=== PATIENT | male | born 2000 | race Two or more races ===

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

== ENCOUNTER 2019-11-06 15:49 | Emergency (ER) | payer OTHER, SELFPAY ==
[2019-11-06 15:50] VITALS: BP 151/87; PULSE 51; RESP 16; TEMP 36.2; O2SAT 98; BMI 25.7
--- NOTE | 2019-11-06 15:55 | XR_ITS ---
PROCEDURE: XR CHEST 2V CLINICAL HISTORY: chest pain. COMPARISON: CXR2 CHEST-AP VIEW ONLY from 01/05/2015 CXR CHEST(2 VIEWS-NOT PORTABLE) from 08/09/2015 CXR CHEST(2 VIEWS-NOT PORTABLE) from 04/05/2017 FINDINGS: The cardiomediastinal silhouette and pulmonary vascularity are within normal limits. The lungs are clear without infiltrates, suspicious nodules, or pleural effusions. No acute bony abnormalities. IMPRESSION: No acute findings. Dictated by: Mick Sepulveda MD 11/06/2019 16:22 Electronically signed by Mick Sepulveda MD in [place] 11/06/2019 16:22
--- NOTE | 2019-11-06 16:10 | HMH.EDCP ---
ED Disposition Clinical Impression: Costalchondritis Disposition: Home, Self-Care Condition on Discharge: Good Instructions: DI for Atypical Chest Pain Prescriptions: Nabumetone 750 mg PO BID 10 Days #20 tab Transmission Status: Sent to [id number] Referrals: Negrito Mooney MD [Primary Care Provider] - - Critical Care Critical Care Time: No Attestation: On 11/06/19, the high probability of a clinically significant, sudden or life threatening deterioration of the following system(s) required my full and direct attention, intervention and personal management. The time I documented below is in addition to time spent performing reported procedures but includes the following listed in this critical care notation. Medical Decision Making - Medical Records Medical records reviewed: Yes: I reviewed the patient's medical records. - Mitchell Inquiry Pt receiving controlled substance: No Vital Signs: 11/06/19 15:50 Temperature 97.2 F L Temperature Source Oral Pulse Rate [Left Radial] 51 L Respiratory Rate 16 Blood Pressure [Right Arm] 151/87 H Blood Pressure Mean [Right Arm] 108 Blood Pressure Position [Right Arm] Sitting 02 Sat by Pulse Oximetry 98 Oxygen Delivery Method Room Air - Lab Data Lab results reviewed: Yes: I reviewed the patient's lab results. Orders (Tests/Meds): ORDERS Category Date Time Status Chest XR 2 view (NOT portable) [XR chest 2V] Stat Exams 11/06/19 15:55 Taken Chest Pain HPI - General Chief Complaint: Chest Pain Stated Complaint: chest pain Time Seen by Provider: 11/06/19 16:10 Mode of Arrival: Ambulatory Source of Information: Patient Limitations: No Limitations Description of Symptoms (Recalled from ER Triage Doc. by RN): to ed per pvt car with c/o sharp chest pain with movement states pain started yesterday denies injury. pt denies any sob, nausea, vomiting, diaphoresis - History of Present Illness HPI narrative: 18-year-old male presents to the ER with subsequent substernal chest pain. He states the pain started last night. He describes the pain as a sharp sensation that is tender to touch. He also states that with deep inhalations it also reproduces the same kind of pain. He also states with doing pushing movements it reproduces the pain as well. He states at rest he can feel it slightly but usually with the exacerbating factors previous described that is what causes the pain to go to about 5-6 out of 10. Rest causes alleviation. Otherwise patient has no other formal cardiac history or no other symptoms. HPIPatient denies any recent cough or shortness of breath, patient denies any sore throat or headache, patient denies any loss of taste or smell, patient denies any malaise or fatigue, patient denies any abdominal pain nausea vomiting or diarrhea. - Related Data Previous Rx's Medication Instructions Recorded Nabumetone 750 mg PO BID 10 Days #20 tab 11/06/19 Allergies Allergy/AdvReac Type Severity Reaction Status Date / Time No Known Allergies Allergy Verified 08/02/19 13:10 [facility] History - Hepatitis A Screen Drug use history?: No High risk sexual behaviors?: No History of sexually transmitted infection?: No Currently employed?: No Childcare worker?: No Do you have indoor plumbing?: Yes Do you have electricity?: Yes Attestation statement:: This patient has been screened for Hepatitis A risk factors. I have reviewed the patient's past medical history: Yes Medical History: Reports:: Palpitations Denies:: Cancer, Diabetes Mellitus Type 1, Diabetes Mellitus Type 2, Hypertension, MRSA Other Medical History: Reports: Other Comment: Premature baby born at 26 weeks Laterality Cases: Bilateral: Myringotomy (Ear Tubes), Tonsillectomy Other Surgeries: Yes: No Previous Surgery Amputation: No Fractures: No - Social History Smoking Status: Current every day smoker Tobacco Type: cigarettes # Packs/Day (cigarettes): 0 Alcohol Intak
--- NOTE | 2019-11-06 16:15 | ECG_ITS ---
APPROVED REPORT Exam: Resting ECG HR:56 bpm ECG Measurements Heart Rate 56 AXES MI 138 P 11 QRSd 86 QRS 65 QT 414 T 50 QTc 399 <Conclusion> Sinus bradycardia Early repolarization Incomplete RBBB Otherwise normal ECG Electronically signed by : Humberto Reese, 11/07/2019 19:00:49
[2019-11-06 17:18] VITALS: BP 112/74; PULSE 78; RESP 16; TEMP 36.6
== END 2019-11-06 17:20 | disposition home or self-care (01) ==
PROVIDERS: Emergency Provider Family Medicine; PCP Family Medicine
DX: M94.0 Chondrocostal junction syndrome [Tietze] (principal); R00.2 Palpitations; F17.210 Nicotine dependence, cigarettes, uncomplicated; F12.10 Cannabis abuse, uncomplicated
CPT/HCPCS: 71046; 93005; 99282

== ENCOUNTER 2020-01-13 15:05 | Emergency (ER) | payer OTHER, SELFPAY ==
[2020-01-13 15:33] VITALS: BP 122/76; PULSE 59; RESP 16; TEMP 36.7; O2SAT 99; BMI 25.7
--- NOTE | 2020-01-13 16:05 | HMH.EDUTC ---
[facility] [place] Impression: Sinusitis Qualifiers: Sinusitis location: unspecified location Chronicity: unspecified Qualified Code(s): J32.9 - Chronic sinusitis, unspecified Disposition: Home, Self-Care Condition on Discharge: Good Instructions: Sinusitis, Sinus Headache, DI for Sinusitis, Amoxicillin and Clavulanic Acid Additional Instructions: *Monitor Temp, Over the counter Motrin or Tylenol as directed/as needed Tylenol every 4 hours and Motrin every 6 hours (as long as your family doctor has told you that you can take it) for fever or pain. and straight to ER if unable to lower temp less than 101.0 after medication given *Warm salt water gargles may help to soothe the throat *Throat Lozenges *Warm fluids like tea with honey may help to soothe the throat *Sleep elevated *Humidifier/Vaporizer *Flonase 2 sprays in each nostril daily but be aware that it may take 2-3 days before you notice improvement Start antibiotic. Sinus infections may take 2-3 days to notice much improvement so be sure to use conservative measures as discussed for symptoms Ok to continue Sudafed Flonase 2 spray in each nostril daily to help with nasal congestion, sinus an ear pressure/inflammation Lots of Fluids Sleep elevated Humidifer/vaporizer Augmentin can cause GI effects. Probiotics may help to prevent these symptoms Follow up with family doctor if no improvement or any worsening of symptoms Follow up IMMEDIATELY for new or worsening symptoms or no Noticeable improvement over the next 48-72 hours. 911 for difficulty breathing or swallowing Prescriptions: Amoxicillin/Potassium Clav [Augmentin 875-125 Tablet] 1 tab PO Q12H 7 Days #14 tab Transmission Status: Pending to [facility] Fluticasone Propionate [Flonase 50mcg nasal spray 16gm] 1 spr NS DAILY #1 bottle Transmission Status: Pending to [facility] Referrals: PCP,No [Primary Care Provider] - As needed Time of Disposition: 16:12 Medical Decision Making - Mitchell Inquiry Pt receiving controlled substance: No Mitchell was queried for this patient: No Vital Signs: 01/13/20 15:33 Temperature 98.1 F Temperature Source Oral Pulse Rate [Right Brachial] 59 L Respiratory Rate 16 Blood Pressure [Right Arm] 122/76 Blood Pressure Mean [Right Arm] 91 Blood Pressure Source [Right Arm] Automatic Cuff Blood Pressure Position [Right Arm] Sitting 02 Sat by Pulse Oximetry 99 Oxygen Delivery Method Room Air Orders (Tests/Meds): ORDERS Category Date Time Status Covid-19 Nasal PCR Sendout Routine Lab 01/13/20 15:50 [place] [facility] [place] - General Stated complaint: not feeling well Time Seen by Provider: 01/13/20 16:05 Mode of Arrival: Ambulatory Source of Information: Patient Limitations: No Limitations Description of Symptoms (Recalled from Triage Doc. by RN): PATIENT C/O CONGESTION, SINUS PRESSURE, SOA, AND BODY ACHES X 2 DAYS. REQUESTING COVID TEST HEENT Symptoms (Recalled from RN notes): Yes Resp Symptoms (Recalled from RN notes): Yes Skin Symptoms (Recalled from RN notes): No MS Symptoms (Recalled from RN notes): Yes Functional Status (Recalled from RN notes): WNL - History of Present Illness Provider Complaint: Patient states that he has been having sinus pain and pressure along with headache and body aches for over a week States that he thinks he has a sinus infection but wants to get checked for COVID - Related Data Previous Rx's Medication Instructions Recorded Amoxicillin/Potassium Clav 1 tab PO Q12H 7 Days #14 tab 01/13/20 [Augmentin 875-125 Tablet] Fluticasone Propionate [Flonase 1 spr NS DAILY #1 bottle 01/13/20 50mcg nasal spray 16gm] Allergies Allergy/AdvReac Type Severity Reaction Status Date / Time No Known Allergies Allergy Verified 08/02/19 13:10 - Worker's Comp Is this a Worker's Comp case?: No [facility] History - Hepatitis A Screen Drug use history?: No High risk sexual behaviors?: No History of se
[2020-01-13 16:18] VITALS: BP 122/76; PULSE 59; RESP 16; TEMP 36.7; O2SAT 99
[2020-01-14 09:01] LABS: Covid-19 Nasal PCR Sendout UK Not Detected
== END 2020-01-13 16:20 | disposition home or self-care (01) ==
PROVIDERS: Emergency Provider Nurse Practitioner
DX: J32.9 Chronic sinusitis, unspecified (principal); Z03.818 Encounter for observation for suspected exposure to other biological agents ruled out; R00.2 Palpitations; F17.210 Nicotine dependence, cigarettes, uncomplicated
CPT/HCPCS: 99201; U0003

== ENCOUNTER 2020-03-17 01:44 | Emergency (ER) | payer OTHER, SELFPAY ==
[2020-03-17 01:45] VITALS: BP 159/93; PULSE 118; RESP 14; TEMP 36.8; O2SAT 100; BMI 20.7
--- NOTE | 2020-03-17 01:52 | ECG_ITS ---
APPROVED REPORT Exam: Resting ECG HR:116 bpm ECG Measurements Heart Rate 116 AXES DC 170 P 69 QRSd 80 QRS 64 QT 310 T 64 QTc 430 Conclusion Sinus tachycardia Nonspecific ST and T wave abnormality Voltage criteria for LVH Abnormal ECG Electronically signed by : Humberto Reese, 03/17/2020 16:51:14
--- NOTE | 2020-03-17 01:52 | XR_ITS ---
PROCEDURE: XR CHEST 2V Referring Doctor: Roberto Saini Patient Age:19Y CLINICAL HISTORY: CHEST TIGHTNESS chest pain 5 days worse tonight smoker. COMPARISON: CR CXR CHEST(2 VIEWS-NOT PORTABLE) from 08/09/2015 CR CXR CHEST(2 VIEWS-NOT PORTABLE) from 04/05/2017 CR XR CHEST 2V from 11/06/2019 FINDINGS: Today's PA and lateral chest performed and shows no significant change since 11/06/2019. No acute findings. Subtle hyperexpansion is.Suggested on the frontal projection but this in part reflects the narrow AP diameter as is seen on the lateral view.. Elevation right hemidiaphragm is stable.. The heart, emanuel and mediastinal structures appear stable in satisfactory but no pleural effusion but no pneumothorax. Chest wall and T-spine unremarkable Cardiomediastinal silhouette and pulmonary vascularity are within normal limits. The lungs are clear without infiltrates, suspicious nodules, or pleural effusions. No acute bony abnormalities. IMPRESSION: Stable chest. Lungs clear with nothing definitely acute. Dictated by: Stefan Diego MD 03/17/2020 17:56 Stefan Diego MD in [place] 03/17/2020 17:56
[2020-03-17 02:00] VITALS: BP 152/90; PULSE 100; RESP 18; O2SAT 99
[2020-03-17 02:04] LABS: Microscopic, Urine URINE MICROSCOPIC (MICROSCOPIC)
[2020-03-17 02:06] LABS: Basophils % 0.5 % (0.1-2.0); Eosinophils # 0.1 K/mm3 (0.0-0.4); Eosinophils % 0.9 % (0.1-12.0); Hematocrit 47.5 % (42.0-52.0); Lymphocytes # 1.5 K/mm3 (0.7-4.5); Lymphocytes % 22.4 % (10-50); Mean Corpuscular HGB Conc 33.6 g/dL (31.8-35.4); Mean Corpuscular Hemoglobin 29.3 pg (27.0-31.2); Mean Corpuscular Volume 87.3 fl (80-94); Mean Platelet Volume 7.4 fl (7.4-10.4); Monocytes # 0.5 K/mm3 (0.1-1.0); Monocytes % 6.8 % (1.7-9.3); Neutrophils # 4.6 K/mm3 (1.8-7.8); Neutrophils % 69.4 % (37.0-80.0); Platelet Count 263 K/mm3 (142-424); Red Blood Count 5.44 M/mm3 (4.60-6.20); Red Cell Distribution Width 13.8 % (11.5-17.5); White Blood Count 6.6 K/mm3 (4.5-13.0)
[2020-03-17 02:07] LABS: Appearance,Urine CLEAR (Clear); Bilirubin,Urine Negative (Negative); Blood, Urine Negative (Negative); Color,Urine YELLOW (Yellow); Glucose,Urine (UA) Negative (Negative); Ketones,Urine TRACE (Negative); Leukocyte Esterase,Urine Negative (Negative); Nitrate,Urine Negative (Negative); Protein,Urine Negative (Negative); Urobilinogen,Urine 0.2 EU/dl (0.2)
[2020-03-17 02:17] LABS: Barbiturates Screen,Urine Negative ng/ml (<200)
[2020-03-17 02:18] LABS: Benzodiazepines Screen,Urine Negative ng/ml (<200)
[2020-03-17 02:19] LABS: Amorphous Sediment,Urine Trace /lpf; Amphetamine/Metha Screen,Urine Negative ng/ml (<1000); Cannabinoid Screen,Urine Positive ng/ml (<50)
[2020-03-17 02:20] LABS: Cocaine Screen,Urine Negative ng/ml (<300)
[2020-03-17 02:21] LABS: Methadone Screen,Urine Negative ng/ml (<300); Opiate Screen,Urine Negative ng/ml (<300)
[2020-03-17 02:22] LABS: Phencyclidine Screen,Urine Negative ng/ml (<25)
[2020-03-17 02:30] VITALS: BP 133/73; PULSE 80; RESP 18; O2SAT 94
[2020-03-17 02:35] LABS: Anion Gap 19.3 mEq/L (5-15); Blood Urea Nitrogen 16 mg/dl (9-20); Carbon Dioxide 22 mmol/L (22.0-30.0); Chloride 102 mmol/L (98-107); Creatinine Clearance Estimated 118 mL/min (50-200); Estimated Glomerular Filt Rate 108 ml/min (>60); GFR (African American) 130 ML/MIN (>60); Glucose 118 mg/dl (74-100); Potassium 3.3 mmoL/L (3.5-5.1); Sodium 140 mmol/L (136-145)
[2020-03-17 02:40] LABS: Ethyl Alcohol < 10 mg/dl (0-10)
[2020-03-17 02:48] LABS: Troponin I < 0.01 ng/ml (0.00-0.034)
[2020-03-17 02:52] LABS: Free T4 (Free Thyroxine) 1.03 ng/dl (0.78-2.19)
[2020-03-17 03:00] VITALS: BP 134/70; PULSE 75; RESP 18; O2SAT 95
--- NOTE | 2020-03-17 03:03 | HMH.EDCP ---
ED Disposition Clinical Impression: Acute anxiety Chest pain Qualifiers: Chest pain type: unspecified Qualified Code(s): R07.9 - Chest pain, unspecified Disposition: Home, Self-Care Condition on Discharge: Good Instructions: Anxiety and Panic Attacks (Alternative Therapy) Additional Instructions: call pcp for follow up Referrals: Provider,Referral, [Primary Care Provider] - - Critical Care Critical Care Time: No Attestation: On 03/17/20, the high probability of a clinically significant, sudden or life threatening deterioration of the following system(s) required my full and direct attention, intervention and personal management. The time I documented below is in addition to time spent performing reported procedures but includes the following listed in this critical care notation. Medical Decision Making - Medical Records Medical records reviewed: Yes: I reviewed the patient's medical records. - Mitchell Inquiry Pt receiving controlled substance: No Vital Signs: 03/17/20 01:45 Temperature 98.2 F Temperature Source Oral Pulse Rate [Right Brachial] 118 H Respiratory Rate 14 Blood Pressure [Right Arm] 159/93 H Blood Pressure Mean [Right Arm] 115 Blood Pressure Source [Right Arm] Automatic Cuff Blood Pressure Position [Right Arm] Sitting 02 Sat by Pulse Oximetry 100 Oxygen Delivery Method Room Air - Lab Data Lab results reviewed: Yes: I reviewed the patient's lab results. Lab Results 03/17/20 01:57: Urine Color Yellow, Urine Appearance Clear, Urine pH 7.0, Ur Specific [place] 1.010, Urine Protein Negative, Urine Glucose (UA) Negative, Urine Ketones Trace, Urine Blood Negative, Urine Nitrate Negative, Urine Bilirubin Negative, Urine Urobilinogen 0.2, Ur Leukocyte Esterase Negative, Amorphous Sediment Trace 03/17/20 01:57: WBC 6.6, RBC 5.44, Hgb 16.0, Hct 47.5, MCV 87.3, MCH 29.3, MCHC 33.6, RDW 13.8, Plt Count 263, MPV 7.4, Neut % (Auto) 69.4, Lymph % (Auto) 22.4, [place] % (Auto) 6.8, Eos % (Auto) 0.9, Baso % (Auto) 0.5, Neut # (Auto) 4.6, Lymph # (Auto) 1.5, [place] # (Auto) 0.5, Eos # (Auto) 0.1, Baso # (Auto) 0.0 03/17/20 01:57: Sodium 140, Potassium 3.3 L, Chloride 102, Carbon Dioxide 22, Anion Gap 19.3 H, BUN 16, Creatinine 0.90, Estimated Creat Clear 118, Estimated GFR 108, Est GFR ( Amer) 130, Glucose 118 H, Calcium 10.0, Troponin I < 0.01, TSH 0.56 03/17/20 01:57: Free T4 1.03 03/17/20 01:57: Urine Opiates Screen Negative, Urine Methadone Screen Negative, Ur Barbituates Screen Negative, Ur Phencyclidine Scrn Negative, Ur Amphetamines Screen Negative, U Benzodiazepines Scrn Negative, Urine Cocaine Screen Negative, U Marijuana (THC) Screen Positive H 03/17/20 01:57: Plasma/Serum Alcohol < 10 Result diagrams: 03/17/20 01:57 03/17/20 01:57 Orders (Tests/Meds): ED MEDICATIONS Generic Name Dose Route Start Last Admin Trade Name Freq PRN Reason Stop Dose Admin Sodium Chloride 1,000 mls @ 999 mls/hr 03/17/20 02:00 03/17/20 02:02 Sod Chlor 0.9% 1000ml Bag IV 03/17/20 03:00 999 mls/hr .Q1H1M CATALINO Administration ORDERS Category Date Time Status XR chest 2V Stat Exams 03/17/20 01:52 Taken Troponin I Q3H Lab 03/17/20 05:00 Ordered Troponin I Q3H Lab 03/17/20 08:00 Ordered - Radiology Data #1 Image(s): Chest Image Reviewed: Yes I reviewed the patient's radiology image Preliminary Findings: Normal/NAD - ECG Data Tracing #1 Arrhythmias present: sinus tach Ischemic changes: non-specific ST-T wave changes Chest Pain HPI - General Chief Complaint: Anxiety Stated Complaint: ANXIETY R/T CP Time Seen by Provider: 03/17/20 02:00 Mode of Arrival: Family Vehicle Source of Information: Patient, Parent(s) Limitations: No Limitations Description of Symptoms (Recalled from ER Triage Doc. by RN): PT PRESENTS WITH ANXIETY RELATED SYMPTOMS AFTER SMOKING MARIJUANA. STATES HE HAS CHEST TIGHTNESS, BILATERAL ARM NUMBNESS AND TINGLING, AND FEELS JUMPY . NO OTHER STIMULANT
[2020-03-17 03:05] LABS: Thyroid Stimulating Hormone 0.56 uIU/mL (0.465-4.68)
[2020-03-17 03:28] VITALS: BP 136/64; PULSE 62; RESP 18; TEMP 36.6; O2SAT 96
== END 2020-03-17 03:40 | disposition home or self-care (01) ==
PROVIDERS: Emergency Provider Emergency Medicine
DX: R07.9 Chest pain, unspecified (principal); F41.0 Panic disorder [episodic paroxysmal anxiety]; F12.10 Cannabis abuse, uncomplicated; R00.2 Palpitations
CPT/HCPCS: 71046; 80048; 80305; 81001; 84439; 84443; 84484; 85025; 93005; 93041; 96365; 99283

== ENCOUNTER → 2020-03-21 16:04 | Outpatient (CLI) | payer OTHER, SELFPAY ==
[2020-03-23 14:39] LABS: Covid-19 Nasal PCR Sendout Lex NOT DETECTED
== END ==
PROVIDERS: PCP Family Medicine; Visit Provider Family Medicine
DX: Z03.818 Encounter for observation for suspected exposure to other biological agents ruled out (principal)
CPT/HCPCS: U0004

== ENCOUNTER → 2020-07-17 00:36 | Outpatient (CLI) | payer OTHER, SELFPAY | PROVIDERS: PCP Family Medicine; Visit Provider Family Medicine | DX: Z79.899 Other long term (current) drug therapy (principal) ==

== ENCOUNTER 2021-05-06 16:12 | Emergency (ER) | payer OTHER, SELFPAY ==
[2021-05-06 16:20] VITALS: BP 149/65; PULSE 62; RESP 18; TEMP 36.8; O2SAT 97; BMI 25.1
[2021-05-06 17:14] VITALS: BP 124/85; PULSE 66; RESP 18; TEMP 37.1; O2SAT 97; BMI 26.4
--- NOTE | 2021-05-06 18:09 | HMH.EDUTC ---
[facility] [place] Dis[place] Clinical Impression: Laceration of left index finger Qualifiers: Encounter type: initial encounter Damage to nail status: without damage Foreign body presence: without foreign body Qualified Code(s): S61.211A - Laceration without foreign body of left index finger without damage to nail, initial encounter Disposition: Home, Self-Care Condition on Discharge: Good Instructions: How to Care for a Laceration After Repair, DI for Laceration Repair -- Simple, Tetanus, Diphtheria, Pertussis (Tdap) Vaccine Additional Instructions: Keep the wound clean and dry. Keep a dressing on it if you are going to be getting it dirty. Watch the for signs of infection, such as redness, swelling, drainage, fever. etc. Take tylenol or ibuprofen for pain. Follow up with your regular doctor. I put in a referral to the orthopedic doctor. I could see your extensor tendon well and I could not see any injury to it, but if have any issues please follow up with him. Return in 10 to 12 days to have the sutures removed. GO TO THE ER FOR ANY WORSENING SYMPTOMS OR CONCERNS. Take the antibiotics (cephalexin-keflex) as directed. Prescriptions: cephALEXin [cephALEXin 500mg capsule] 500 mg PO Q6H 10 Days #40 cap Transmission Status: Received by [facility] Referrals: Negrito Mooney MD [Primary Care Provider] - Xavier Mooney MD [Staff Physician] - Time of Disposition: 19:08 Medical Decision Making - Medical Records Medical records reviewed: No: I reviewed the patient's medical records. - Mitchell Inquiry Pt receiving controlled substance: No Vital Signs: 05/06/21 16:20 05/06/21 17:14 05/06/21 19:19 Temperature 98.2 F 98.7 F 98.7 F Temperature Source Oral Oral Pulse Rate 66 Pulse Rate [Right Radial] 62 66 Respiratory Rate 18 18 18 Blood Pressure 124/85 Blood Pressure [Right Arm] 149/65 H 124/85 Blood Pressure Mean [Right Arm] 93 98 Blood Pressure Source [Right Arm] Automatic Cuff Blood Pressure Position [Right Arm] Sitting 02 Sat by Pulse Oximetry 97 97 Oxygen Delivery Method Room Air Orders (Tests/Meds): ED MEDICATIONS Discontinued Medications Generic Name Dose Route Start Last Admin Trade Name Freq PRN Reason Stop Dose Admin Lidocaine HCl 2 ml 05/06/21 19:00 05/06/21 19:17 Lidocaine 1% Pf 2ml Ampule SQ 05/06/21 19:01 1 ml ONCE ONE Administration Tetanus/Diphtheria Toxoids 0.5 ml 05/06/21 17:59 05/06/21 18:02 Tetanus-Diphth Toxoid, Adult 0.5ml Syr IM 05/06/21 18:00 0.5 ml .ONCE ONE Administration [facility] [place] HPI - General Stated complaint: cut L finger w/ switchblade Time Seen by Provider: 05/06/21 17:25 Mode of Arrival: Ambulatory Source of Information: Patient Limitations: No Limitations Description of Symptoms (Recalled from Triage Doc. by RN): pt presents with lac lac below the first knuckle on his L index finger. pt states he cut it while trying to cut tape. about 45 minutes ago. HEENT Symptoms (Recalled from RN notes): No Resp Symptoms (Recalled from RN notes): No Skin Symptoms (Recalled from RN notes): Yes MS Symptoms (Recalled from RN notes): No Functional Status (Recalled from RN notes): wnl - History of Present Illness Provider Complaint: He states that right before he came here he was cutting some tape with a knife when he slipped and cut the top of his left index finger. He has a laceration that goes laterally across the pip area of the finger. He is able to bend and straingten it well. - Related Data Previous Rx's Medication Instructions Recorded Amoxicillin/Potassium Clav 1 tab PO Q12H 7 Days #14 tab 01/13/20 [Augmentin 875-125 Tablet] Fluticasone Propionate [Flonase 1 spr NS DAILY #1 bottle 01/13/20 50mcg nasal spray 16gm] cephALEXin [cephALEXin 500mg 500 mg PO Q6H 10 Days #40 cap 05/06/21 capsule] Allergies Allergy/AdvReac Type Severity Reaction Status Date / Time No Known Allergies Allergy Verifi
[2021-05-06 19:19] VITALS: BP 124/85; PULSE 66; RESP 18; TEMP 37.1
== END 2021-05-06 19:20 | disposition home or self-care (01) ==
PROVIDERS: Emergency Provider Nurse Practitioner Family; PCP Family Medicine
DX: S61.211A Laceration without foreign body of left index finger without damage to nail, initial encounter (principal); W26.9XXA Contact with unspecified sharp object(s), initial encounter; Y92.019 Unspecified place in single-family (private) house as the place of occurrence of the external cause; Z23 Encounter for immunization
CPT/HCPCS: 12002; 90471; 90714; 96372; 99202; G0463

== ENCOUNTER 2023-06-08 12:19 | Emergency (ER) | payer OTHER, SELFPAY ==
[2023-06-08 12:30] VITALS: BP 119/81; PULSE 91; RESP 18; TEMP 36.7; O2SAT 100; BMI 25.3
--- NOTE | 2023-06-08 12:52 | EXP.UTC ---
Discharge Plan Disposition Patient Disposition: Home, Self-Care Condition: Good Prescriptions Prescriptions: New ondansetron 4 mg tablet,disintegrating 4 mg PO Q8H PRN (Reason: nausea and vomiting) Qty: 12 0RF Referrals Follow up/Referrals: Negrito Mooney MD [Primary Care Provider] - See instructions Activity Restrictions/Add. Instructions Additional Instructions/Restrictions: *Monitor Temp, Over the counter Motrin or Tylenol as directed/as needed Tylenol every 4 hours and Motrin every 6 hours (as long as your family doctor has told you that you can take it) for fever or pain. and straight to ER if unable to lower temp less than 101.0 after medication given *Warm salt water gargles may help to soothe the throat *Throat Lozenges? *Warm fluids like tea with honey may help to soothe the throat? *Sleep elevated * Drink extra fluids with and between meals. If you have difficulty drinking, try very small amounts of water or suck on ice chips. ? Avoid fruit juices, as these do not replace minerals and can actually increase diarrhea. ? Children and adults can use sports drinks to replenish electrolytes. Younger children and infants should use products formulated for children, like oral rehydration solutions. ? Eat food in small amounts and let your stomach recover. ? Get lots of rest. You may feel tired or weak. ? No greasy or fried foods for the next 24-48 hours BRAT diet Bananas Rice Apples and [place] ? Make sure to drink plenty of liquids ? Return if needed ? Straight to ER if any life threatening symptoms ? Zofran as prescribed Follow up IMMEDIATELY for new or worsening symptoms or no Noticeable improvement over the next 48-72 hours. 911 for difficulty breathing or swallowing Clinical Impressions Clinical Impression: Viral syndrome Stand Alone Forms Stand Alone Forms: Work/School Release Instructions Patient Instructions: DI for Viral Syndrome, DI for Vomiting -- Adult Discharge ED Provider: Joann Venegas [facility] HPI General Stated complaint: fever, chills, body aches Mode of Arrival: Ambulatory Source of Information: Patient Limitations: No Limitations Time Seen by Provider: 06/08/23 12:52 Description of Symptoms (Recalled from Triage Doc. 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 Medical History (Updated 06/08/23 @ 13:00 by Joann Venegas APRN) Chest pain Palpitations Premature atrial complex Social History Smoking Status: Current every day smoker tobacco type: cigarettes packs per day: 0 alcohol intake: never substance use type: marijuana current occupational status: other Travel in the last 8 weeks: None household members: other housing: other ROS Obtained: Yes All systems reviewed & no additional complaints except as documented and Yes Systems reviewed as appropriate & no additional complaints except as documented Constitutional Constitutional: Reports system reviewed and no additional complaints, except as documented, Reports as per HPI, Reports body ache, Reports chills and Reports fever(s) ENT Ears, Nose, Mouth, and Throat: Reports system reviewed and no additional complaints, except as documented and Reports as per HPI Cardiovascular Cardiovascular: Reports system reviewed and no additional complaints, except as documented and Reports as per HPI Respiratory Respiratory: Reports system reviewed and no additional complaints, except as documented and Reports as per HPI Gastrointestinal Gastrointestingal: Reports system reviewed and no additional complaints, except as documented, as per HPI, nausea and vomiting Physical Exam General General appearance: alert and in no apparent distress ENT ENT exam: Present mucous membranes moist Expanded ENT Exam Nose exam: Absent sinus tenderness Throat exam: Present normal inspection Respiratory Respiratory exam: Present normal lung sounds bilaterally; Absent respiratory distress or wheezes Cardiovascular Cardiovascular exam: Present regular rate, normal rhythm and normal heart sounds Abdominal Exam Abdominal exam: Present soft and normal bowel sounds; Absent distention or tenderness Neurological Exam Neurological exam: Present alert, oriented X3 and normal gait Medical Decision Making Mitchell Inquiry Pt receiving controlled substance: No Mitchell was queried for this patient: No Vital Signs: 06/08/23 12:30 Temperature 98.0 F Temperature Source Oral Pulse Rate [Left Brachial] 91 H Respiratory Rate 18 Blood Pressure [Left Arm] 119/81 Blood Pressure Mean [Left Arm] 93 Blood Pressure Source [Left Arm] Automatic Cuff Blood Pressure Position [Left Arm] Sitting 02 Sat by Pulse Oximetry 100 Oxygen Delivery Method Room Air Lab Data Lab results reviewed: Yes I reviewed the patient's lab results.
[2023-06-08 12:57] LABS: UTC Influenza A Antigen Negative (Negative); UTC Influenza B Antigen Negative (Negative)
[2023-06-08 13:00] VITALS: BP 119/81; PULSE 91; RESP 18; TEMP 36.7; O2SAT 100
== END 2023-06-08 13:04 | disposition home or self-care (01) ==
PROVIDERS: Emergency Provider Nurse Practitioner; PCP Family Medicine
DX: R11.2 Nausea with vomiting, unspecified (principal); R50.9 Fever, unspecified; M79.18 Myalgia, other site; F17.210 Nicotine dependence, cigarettes, uncomplicated
CPT/HCPCS: 87804; 99212; 99214; G0463

== ENCOUNTER 2024-04-04 00:24 | Emergency (ER) | payer SELFPAY ==
[2024-04-04 00:34] VITALS: BP 163/83; PULSE 83; RESP 20; TEMP 36.8; O2SAT 99; BMI 25.1
--- NOTE | 2024-04-04 00:34 | ED_ITS ---
Discharge Plan Prescriptions Prescriptions: No Action No Known Home Medications Referrals Follow up/Referrals: Negrito Mooney MD [Primary Care Provider] - See instructions Activity Restrictions/Add. Instructions Additional Instructions/Restrictions: Please follow-up with the burn and wound care clinic, they should be calling to schedule an appointment. Please monitor the area for signs of infection. Please return to the emergency department if you develop any new or worsening symptoms or become concerned for your health. Clinical Impressions Clinical Impression: Full thickness burn Print Language Print Language: Kyrgyz Discharge ED Provider: Morteza Cancino General Adult HPI General Chief complaint: Burn/Smoke Inhalation Stated complaint: burn L arm, work related Time Seen by Provider: 04/04/24 00:34 History of Present Illness HPI narrative: 23-year-old male without significant past medical history presents with burn to the left upper arm. It happened an hour ago at work. He burned it on hot metal while working at [employer]. He is unsure when his last tetanus shot was. Related Data Home Medications ?Medication ?Instructions ?Recorded ?Confirmed No Known Home Medications 04/04/24 04/04/24 Allergies Allergy/AdvReac Type Severity Reaction Status Date / Time No Known Allergies Allergy Verified 04/04/24 00:34 [facility] Disclaimer: The information contained in this section may have been updated after the patient was seen, as this information can be updated by other users. Medical History (Updated 04/04/24 @ 00:59 by Morteza Cancino MD) Asthma Premature atrial complex Palpitations Chest pain Surgical History (Updated 04/04/24 @ 00:33 by Molly Lubin RN) Status post myringotomy with tube placement of both ears Social History (Updated 04/04/24 @ 00:33 by Molly Lubin RN) Smoking Status: Current every day smoker tobacco type: cigarettes packs per day: 0 alcohol intake: never substance use type: marijuana current occupational status: employed Travel in the last 8 weeks: None household members: other housing: other Other Medical History Have you received the Flu Vaccine for this season: No Have you received the Pneumonia Vaccine: No ROS Obtained: Yes All systems reviewed & no additional complaints except as documented Physical Exam General General appearance: alert and in no apparent distress Head Head exam: atraumatic and normocephalic Eye Eye exam: Present normal appearance, PERRL and EOMI ENT ENT exam: Present normal oropharynx and normal external ear exam Neck Neck exam: Present normal inspection and full ROM Chest Chest inspection: Present normal inspection and symmetric chest wall rise; Absent tenderness Respiratory Respiratory exam: Present normal lung sounds bilaterally; Absent respiratory distress Cardiovascular Cardiovascular exam: Present regular rate and normal rhythm Abdominal Exam Abdominal exam: Present soft; Absent distention, tenderness or guarding Extremities Exam Extremities exam: Present other (Approximately 7 x 7 x 7 cm triangle of full- thickness burn to the left medial upper arm, there is about a 3 cm border around this area as well. The central wound is minimally sensate, minimally blanching, blisters are developing.); Absent edema or joint swelling Back Exam Back exam: Present normal inspection; Absent tenderness Neurological Exam Neurological exam: Present alert and oriented X3; Absent motor sensory deficit Psychiatric Psychiatric exam: Present normal affect and normal mood Skin Skin exam: Present warm, dry and normal color Lymphatic Lymphatic Findings: no adenopathy Medical Decision Making Medical Records Medical records reviewed: Yes I reviewed the patient's medical records. Screening: Per USPSTF and CDC recommendations, given the prevalence of disease in our region, it is our hospital?s policy to screen for HIV and viral Hepatitis for all patients aged 18 and over and those with ongoing risk factors. Mitchell Inquiry Pt receiving controlled substance: No Mitchell was queried for this patient: No Vital Signs: 04/04/24 00:34 04/04/24 01:04 Temperature 98.2 F 98.3 F Temperature Source Oral Tympanic Pulse Rate 74 Pulse Rate [Right Brachial] 83 Respiratory Rate 20 18 Blood Pressure 154/99 H Blood Pressure [Right Arm] 163/83 H Blood Pressure Mean [Right Arm] 109 Blood Pressure Source [Right Arm] Automatic Cuff Blood Pressure Position [Right Arm] Sitting 02 Sat by Pulse Oximetry 99 Oxygen Delivery Method Room Air Room Air Lab Data Lab results reviewed: Yes I reviewed the patient's lab results. Orders (Tests/Meds): ED MEDICATIONS Discontinued Medications Generic Name Dose Route Start Last Admin Trade Name Freq PRN Reason Stop Dose Admin Acetaminophen 1,000 mg 04/04/24 00:50 04/04/24 00:58 Acetaminophen 500mg Tab PO 04/04/24 00:51 1,000 mg ONCE ONE Administration Ibuprofen 600 mg 04/04/24 00:50 04/04/24 00:58 Ibuprofen 600 Mg Tablet PO 04/04/24 00:51 600 mg ONCE ONE Administration Tetanus/Reduced Diphtheria/Acell Pertussis 0.5 ml 04/04/24 00:50 04/04/24 00:58 Tet/Diphth/Pert-Adult 0.5ml Syringe IM 04/04/24 00:51 0.5 ml .ONCE ONE Administration Medical Decision Narrative: 23-year-old male without significant past medical history presents for burn to left upper arm. On exam it appears consistent with full-thickness burn, approximately 1% total body surface area, triangular in shape. Patient was given a tetanus shot and Opticell Ag was applied. I called the [facility] and arrange for patient to be called with follow-up for the burn and wound care clinic at the [facility]. Patient was given instructions regarding wound care and return precautions Procedures Risk/Benefits of Procedure(s) Were Explained: Yes Critical Care Critical Care Time Critical Care Time: No
--- NOTE | 2024-04-04 00:44 | PC.NURSE ---
spoke with for a followup appointment in the burn clinic, Homa at says she thinks that would be a plastics would be the team following up with him. They are going to give us a call back as soon as possible.
[2024-04-04] MEDS: TET/DIPHTH/PERT-ADULT 0.5ML SYRINGE 0.5 ML IM (00:58)
[2024-04-04] MEDS: ACETAMINOPHEN 500MG TAB 1000 MG PO (00:58)
[2024-04-04] MEDS: IBUPROFEN 600 MG TABLET PO (00:58)
[2024-04-04 01:04] VITALS: BP 154/99; PULSE 74; RESP 18; TEMP 36.8; O2SAT 97
== END 2024-04-04 01:05 | disposition home or self-care (01) ==
PROVIDERS: Emergency Provider Emergency Medicine; PCP Family Medicine
DX: T30.0 Burn of unspecified body region, unspecified degree (principal); M79.602 Pain in left arm; Z23 Encounter for immunization; X08.8XXA Exposure to other specified smoke, fire and flames, initial encounter; Y93.89 Activity, other specified; Y92.89 Other specified places as the place of occurrence of the external cause
CPT/HCPCS: 90471; 90715; 99284